=== PATIENT | female | born 1980 | race Caucasian/White ===

== ENCOUNTER 2016-11-29 09:53 | Inpatient (IN) | payer OTHER ==
[~2016-11-29] VITALS: Ht 167.6 cm; Wt 75.0 kg
[2016-11-29 10:00] VITALS: BP 120/78
[2016-11-29 10:47] LABS: AMNI OBC PASS; AMNISURE POSITIVE (NEGATIVE)
[2016-11-29] MEDS ORDERED: OXYTOCIN 30U/ 0.9% NaCL 500ML 500 ML IV ONE (11:03)
[2016-11-29] MEDS: LACTATED RINGERS 1,000 ML IV SCH ×2 (11:03→19:03)
[2016-11-29] MEDS ORDERED: NEWBORN KIT ONE (11:06)
[2016-11-29] MEDS ORDERED: MISOPROSTOL 200 MCG TABLET ONE (11:06)
[2016-11-29] MEDS ORDERED: OXYTOCIN 30U/ 0.9% NaCL 500ML 500 ML ONE (11:06)
[2016-11-29] MEDS ORDERED: LIDOCAINE 1%, 20ML ONE (11:06)
[2016-11-29] MEDS ORDERED: CALCIUM CARBONATE 500 MG TAB.CHEW PO PRN (11:30)
[2016-11-29] MEDS ORDERED: ONDANSETRON 2MG/ML, 2ML IVPush PRN (11:30)
[2016-11-29 11:42] LABS: HEMATOCRIT 36.5 % (34.6-47.8); HEMOGLOBIN 12.7 g/dL (11.7-16.4); WHITE BLOOD COUNT 16.1 x10^3/uL (3.4-10)
[2016-11-29] MEDS ORDERED: TERBUTALINE 1 MG/ML, 1ML ONE (15:23)
[2016-11-29] MEDS ORDERED: FENTANYL PF 100 MCG/2ML ONE (16:02)
[2016-11-29] MEDS: FENTANYL PF 100 MCG/2ML IVPush PRN (16:04)
[2016-11-29] MEDS ORDERED: FENTANYL/BUPIV./NS/PF 250 ML EPIDCONT SCH (16:57)
[2016-11-29] MEDS ORDERED: LACTATED RINGERS 1,000 ML IV SCH (16:57)
[2016-11-29] MEDS ORDERED: BUPIVACAINE/PF 0.25% ONE (16:59)
[2016-11-29] MEDS ORDERED: FENTANYL/BUPIV./NS/PF 250 ML EPIDCONT ONE (16:59)
[2016-11-29] MEDS: AMPICILLIN 2 GM in SODIUM CHLORIDE 0.9% 100 ML IVPB SCH ×2 (17:00→22:51)
[2016-11-29] MEDS ORDERED: EPHEDRINE 50 MG/ML, 1ML IVPush PRN (17:00)
[2016-11-29] MEDS ORDERED: NALOXONE 0.4 MG/ML, 1ML IVPush PRN (17:00)
[2016-11-29] MEDS ORDERED: LACTATED RINGERS 1,000 ML IVBOLUS PRN (17:00)
[2016-11-29] MEDS ORDERED: TERBUTALINE 1 MG/ML, 1ML IVPush PRN (17:30)
[2016-11-29] MEDS ORDERED: OXYTOCIN 30U/ 0.9% NaCL 500ML 500 ML IV PRN (18:19)
[2016-11-29] MEDS: D5%-LACTATED RINGERS 1,000 ML IV SCH ×2 (18:28→19:03)
[2016-11-29] MEDS: OXYTOCIN 30U/ 0.9% NaCL 500ML 500 ML IV SCH (22:48)
[2016-11-29] MEDS ORDERED: MISOPROSTOL 200 MCG TABLET PO PRN (23:00)
[2016-11-29] MEDS ORDERED: METHYLERGONOVINE 0.2 MG/ML IM PRN (23:00)
[2016-11-29] MEDS ORDERED: OXYcodone/APAP 5/325MG TABLET PO PRN ×2 (23:00)
[2016-11-29] MEDS ORDERED: ONDANSETRON 2MG/ML, 2ML IV PRN (23:00)
[2016-11-30] MEDS: IBUPROFEN 600 MG TABLET PO PRN ×4 (01:24→23:17)
[2016-11-30 01:45] VITALS: BP 107/63
[2016-11-30] MEDS: FENTANYL PF 100 MCG/2ML IVPush PRN (02:12)
[2016-11-30] MEDS: LACTATED RINGERS 1,000 ML IV SCH ×3 (03:03→19:03)
[2016-11-30] MEDS: D5%-LACTATED RINGERS 1,000 ML IV SCH ×3 (03:03→19:03)
[2016-11-30 03:50] VITALS: BP 108/65
[2016-11-30] MEDS: CEFAZOLIN PMX 2GM/50ML 50 ML IVPB SCH ×3 (04:41→21:09)
[2016-11-30 06:09] LABS: HEMATOCRIT 32.2 % (34.6-47.8); HEMOGLOBIN 11.3 g/dL (11.7-16.4); WHITE BLOOD COUNT 21.1 x10^3/uL (3.4-10)
[2016-11-30 06:36] LABS: DIFF TOTAL CELLS COUNTED 100 CELL DIFF
[2016-11-30 06:38] LABS: VERIFY COUNTS? YES
[2016-11-30] MEDS: OXYTOCIN 30U/ 0.9% NaCL 500ML 500 ML IV SCH ×2 (08:48→18:48)
[2016-11-30 09:00] VITALS: BP 121/73
[2016-11-30] MEDS: PRENATAL VIT/IRON/FA 1 EACH TABLET PO SCH (09:23)
[2016-11-30] MEDS: DOCUSATE 100 MG CAPSULE PO PRN ×2 (09:23→23:17)
[2016-11-30 13:00] VITALS: BP 113/74
[2016-11-30 16:00] VITALS: BP 117/72
[2016-11-30 19:40] VITALS: BP 104/53
[2016-12-01] MEDS: LACTATED RINGERS 1,000 ML IV SCH (03:03)
[2016-12-01] MEDS: D5%-LACTATED RINGERS 1,000 ML IV SCH (03:03)
[2016-12-01] MEDS: OXYTOCIN 30U/ 0.9% NaCL 500ML 500 ML IV SCH (04:48)
[2016-12-01 05:20] VITALS: BP 106/67
[2016-12-01 08:00] VITALS: BP 112/75
[2016-12-01] MEDS: PRENATAL VIT/IRON/FA 1 EACH TABLET PO SCH (08:08)
[2016-12-01] MEDS: IBUPROFEN 600 MG TABLET PO PRN ×2 (08:08→14:25)
[2016-12-01] MEDS: DOCUSATE 100 MG CAPSULE PO PRN (08:41)
[2016-12-01 12:00] VITALS: BP 118/78
[2016-12-01 14:17] LABS: HEMATOCRIT 33.2 % (34.6-47.8); HEMOGLOBIN 11.2 g/dL (11.7-16.4); WHITE BLOOD COUNT 13.6 x10^3/uL (3.4-10)
[2016-12-01] MEDS ORDERED: IBUP-1222 PO (15:26)
== END 2016-12-01 17:53 | disposition home or self-care (01) | DRG 775 ==
LOC: LDOP 09:53 → LDIP 10:49 → 2NW 11-30 01:30
PROVIDERS: ADMIT Obstetrics & Gynecology; ATTEND Obstetrics & Gynecology
PROC: 10E0XZZ Delivery of Products of Conception, External Approach (ICD-10-PCS; principal; 2016-11-30)
PROC: 0KQM0ZZ Repair Perineum Muscle, Open Approach (ICD-10-PCS; 2016-11-30)
PROC: 3E0R3BZ Introduction of Anesthetic Agent into Spinal Canal, Percutaneous Approach (ICD-10-PCS; 2016-11-30)
PROC: 00HU33Z Insertion of Infusion Device into Spinal Canal, Percutaneous Approach (ICD-10-PCS; 2016-11-30)
DX: O76 Abnormality in fetal heart rate and rhythm complicating labor and delivery (principal); O41.1230 Chorioamnionitis, third trimester, not applicable or unspecified; O63.1 Prolonged second stage (of labor); O42.92 Full-term premature rupture of membranes, unspecified as to length of time between rupture and onset of labor; Z37.0 Single live birth; O77.0 Labor and delivery complicated by meconium in amniotic fluid; O48.0 Post-term pregnancy; O70.1 Second degree perineal laceration during delivery; Z3A.40 40 weeks gestation of pregnancy
CPT/HCPCS: 36415; 82803; 84112; 85025; 86850; 86900; J0290; J0690; J3010; J2590; J3105; J7121

== ENCOUNTER → 2017-01-21 | Outpatient (CLI) | payer OTHER ==
[~2017-01-21] MED LIST: IBUP-1222 PO
== END | disposition home or self-care (01) ==
LOC: CFH 16:31
PROVIDERS: ATTEND Obstetrics & Gynecology
DX: M53.3 Sacrococcygeal disorders, not elsewhere classified (principal)
CPT/HCPCS: 72220

== ENCOUNTER 2019-02-27 17:23 | Inpatient (IN) | payer OTHER ==
[~2019-02-27] VITALS: Ht 167.6 cm; Wt 77.3 kg
[2019-02-27] MEDS ORDERED: OXYTOCIN 30U/ 0.9% NaCL 500ML 500 ML IV ONE (17:37)
[2019-02-27] MEDS: D5%-LACTATED RINGERS 1,000 ML IV SCH (17:37)
[2019-02-27] MEDS ORDERED: OXYTOCIN 30U/ 0.9% NaCL 500ML 500 ML IV PRN (17:37)
[2019-02-27 17:52] VITALS: BP 127/66
[2019-02-27] MEDS ORDERED: LIDOCAINE 1%, 20ML ONE (17:52)
[2019-02-27] MEDS ORDERED: NEWBORN KIT ONE (17:52)
[2019-02-27] MEDS ORDERED: OXYTOCIN 30U/ 0.9% NaCL 500ML 500 ML ONE (17:53)
[2019-02-27] MEDS ORDERED: MISOPROSTOL 200 MCG TABLET ONE (17:53)
[2019-02-27] MEDS ORDERED: METOCLOPRAMIDE 5 MG/ML, 2ML IVPush PRN (18:00)
[2019-02-27] MEDS ORDERED: CALCIUM CARBONATE 500 MG TAB.CHEW PO PRN (18:00)
[2019-02-27] MEDS ORDERED: TERBUTALINE 1 MG/ML, 1ML IVPush PRN (18:00)
[2019-02-27] MEDS ORDERED: TERBUTALINE 1 MG/ML, 1ML SQ PRN (18:00)
[2019-02-27] MEDS ORDERED: FENTANYL PF 100 MCG/2ML IV PRN (18:00)
[2019-02-27] MEDS ORDERED: FENTANYL PF 100 MCG/2ML IVPush PRN (18:00)
[2019-02-27] MEDS: LACTATED RINGERS 1,000 ML IV SCH ×2 (18:11→19:00)
[2019-02-27 18:37] LABS: BASOPHILS # (AUTO) 0.03 x10^3/uL (0-0.1); BASOPHILS % (AUTO) 0 % (0-1); EOSINOPHILS # (AUTO) 0.08 x10^3/uL (0-0.4); EOSINOPHILS % (AUTO) 1 % (1-7); LYMPHOCYTES % (AUTO) 19 % (22-44); MD NO; MEAN CORPUSCULAR HEMOGLOBIN 31.9 pg (27.0-34.8); MEAN CORPUSCULAR HGB CONC 33.4 g/dL (32.4-35.8); MEAN CORPUSCULAR VOLUME 95.6 fL (80-100); MEAN PLATELET VOLUME 10.3 fL (7.4-10.4); MONOCYTES # (AUTO) 0.57 x10^3/uL (0.2-0.8); MONOCYTES % (AUTO) 7 % (2-9); NEUTROPHILS # (AUTO) 6.25 x10^3/uL (1.8-6.8); NEUTROPHILS % (AUTO) 73 % (42-75); PLATELET COUNT 141 x10^3/uL (130-400); RED BLOOD COUNT 3.85 x10^6/uL (3.82-5.3); RED CELL DISTRIBUTION WIDTH 13.8 % (9.6-15.2)
[2019-02-27] MEDS ORDERED: LACTATED RINGERS 1,000 ML IVBOLUS PRN (19:00)
[2019-02-27] MEDS ORDERED: EPHEDRINE 50 MG/ML, 1ML IVPush PRN (19:00)
[2019-02-27] MEDS ORDERED: FENTANYL/BUPIV./NS/PF 250 ML EPIDCONT SCH (19:00)
[2019-02-27] MEDS ORDERED: FENTANYL/BUPIV./NS/PF 250 ML EPIDCONT ONE ×2 (19:52→20:30)
[2019-02-27] MEDS ORDERED: BUPIVACAINE 0.25% ONE ×2 (20:26→20:30)
[2019-02-27] MEDS ORDERED: FENTANYL PF 100 MCG/2ML ONE ×2 (20:26→20:30)
[2019-02-27] MEDS ORDERED: LIDOCAINE/PF 1.5%-EPI 1:200K, 30ML ONE (20:30)
[2019-02-28] MEDS: OXYTOCIN 30U/ 0.9% NaCL 500ML 500 ML IV SCH ×15 (00:49→23:45)
[2019-02-28] MEDS ORDERED: ONDANSETRON 2MG/ML, 2ML IV PRN (01:00)
[2019-02-28] MEDS ORDERED: ACETAMINOPHEN 325 MG TABLET PO PRN ×2 (01:00)
[2019-02-28] MEDS ORDERED: HYDROcodone/APAP 5/325 TABLET PO PRN ×2 (01:00)
[2019-02-28] MEDS ORDERED: SIMETHICONE 80 MG CHEW TAB PO PRN (01:00)
[2019-02-28] MEDS ORDERED: BISACODYL 10 MG SUPP PR PRN (01:00)
[2019-02-28] MEDS ORDERED: MISOPROSTOL 200 MCG TABLET PR PRN (01:00)
[2019-02-28] MEDS ORDERED: IBUPROFEN 600 MG TABLET ONE (01:19)
[2019-02-28] MEDS ORDERED: OXYTOCIN 30U/ 0.9% NaCL 500ML 500 ML ONE (01:19)
[2019-02-28] MEDS: IBUPROFEN 600 MG TABLET PO PRN ×4 (01:23→20:45)
[2019-02-28] MEDS: LACTATED RINGERS 1,000 ML IV SCH ×6 (01:37→19:00)
[2019-02-28] MEDS: D5%-LACTATED RINGERS 1,000 ML IV SCH ×3 (01:37→17:37)
[2019-02-28 02:30] VITALS: BP 102/63
[2019-02-28 07:35] VITALS: BP 112/68
[2019-02-28] MEDS: PRENATAL VIT/IRON/FA 1 EACH TABLET PO SCH (07:41)
[2019-02-28] MEDS: DOCUSATE 100 MG CAPSULE PO PRN (07:41)
[2019-02-28 08:25] LABS: MEAN CORPUSCULAR HEMOGLOBIN 32.5 pg (27.0-34.8); MEAN CORPUSCULAR HGB CONC 33.6 g/dL (32.4-35.8); MEAN CORPUSCULAR VOLUME 96.7 fL (80-100); MEAN PLATELET VOLUME 10.1 fL (7.4-10.4); PLATELET COUNT 133 x10^3/uL (130-400); RED CELL DISTRIBUTION WIDTH 13.6 % (9.6-15.2)
[2019-02-28 08:45] LABS: BASOPHILS # (AUTO) 0.01 x10^3/uL (0-0.1); BASOPHILS % (AUTO) 0 % (0-1); EOSINOPHILS # (AUTO) 0.16 x10^3/uL (0-0.4); EOSINOPHILS % (AUTO) 1 % (1-7); LYMPHOCYTES # (AUTO) 1.72 x10^3/uL (1-3.4); LYMPHOCYTES % (AUTO) 14 % (22-44); MD SCAN; MONOCYTES # (AUTO) 1.02 x10^3/uL (0.2-0.8); MONOCYTES % (AUTO) 8 % (2-9); NEUTROPHILS % (AUTO) 76 % (42-75)
[2019-02-28 12:30] VITALS: BP 104/66
[2019-02-28 20:00] VITALS: BP 103/54
[2019-03-01] VITALS: BP 95/58
[2019-03-01] MEDS: OXYTOCIN 30U/ 0.9% NaCL 500ML 500 ML IV SCH (01:11)
[2019-03-01] MEDS: D5%-LACTATED RINGERS 1,000 ML IV SCH (01:37)
[2019-03-01] MEDS: LACTATED RINGERS 1,000 ML IV SCH (01:37)
[2019-03-01] MEDS: IBUPROFEN 600 MG TABLET PO PRN (06:44)
[2019-03-01] MEDS: PRENATAL VIT/IRON/FA 1 EACH TABLET PO SCH (07:32)
[2019-03-01] MEDS: DOCUSATE 100 MG CAPSULE PO PRN (07:32)
[2019-03-01 08:05] VITALS: BP 108/70
[2019-03-01] MEDS ORDERED: IBUP-1222 PO (08:08)
== END 2019-03-01 12:07 | disposition home or self-care (01) | DRG 807 ==
LOC: LDIP 17:23 → 2NW 02-28 02:25
PROVIDERS: ADMIT Obstetrics & Gynecology; ATTEND Obstetrics & Gynecology
PROC: 10E0XZZ Delivery of Products of Conception, External Approach (ICD-10-PCS; principal; 2019-02-28)
PROC: 0HQ9XZZ Repair Perineum Skin, External Approach (ICD-10-PCS; 2019-02-28)
PROC: 3E0R3BZ Introduction of Anesthetic Agent into Spinal Canal, Percutaneous Approach (ICD-10-PCS; 2019-02-28)
PROC: 00HU33Z Insertion of Infusion Device into Spinal Canal, Percutaneous Approach (ICD-10-PCS; 2019-02-28)
PROC: 3E033VJ Introduction of Other Hormone into Peripheral Vein, Percutaneous Approach (ICD-10-PCS; 2019-02-28)
DX: O42.92 Full-term premature rupture of membranes, unspecified as to length of time between rupture and onset of labor (principal); Z37.0 Single live birth; O43.123 Velamentous insertion of umbilical cord, third trimester; O70.0 First degree perineal laceration during delivery; O77.0 Labor and delivery complicated by meconium in amniotic fluid; Z3A.38 38 weeks gestation of pregnancy
CPT/HCPCS: 36415; J3490; 85025; 86592; 86850; 86900; G0378; J3010; J2590; J7120